=== PATIENT | female | born 2000 | race Caucasian/White ===

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

== ENCOUNTER 2018-01-21 12:10 | Inpatient (IN) ==
[2018-01-21] MEDS ORDERED: Sodium Chloride 0.9% 1,000 ML PRIMARY IV ONE (12:20)
--- NOTE | 2018-01-21 12:29 | PDOC ---
General Adult HPI - General Chief Complaint: Nausea / Vomiting / Diarrhea Stated Complaint: nausea, vomiting, hyperglycemia Date Seen by Provider: 01/21/18 Time Seen by Provider: 12:15 Source: POSITIVE: Patient Exam Limitations: POSITIVE: No limitations Nurse's Notes Reviewed & Considered: Yes - History of Present Illness Initial Comment: The patient is a 17-year-old female who presents to the emergency department with complaints of chest pain, nausea and vomiting. She had onset of nausea and vomiting yesterday and has been unable to keep very much down since then. She does have a history of type I diabetes and states that her blood sugars were running in the 80s to 90s yesterday and earlier this morning. When tested up at the clinic they were above 300. She does admit that she had drank some juice just prior to that. She initially presented to the walk-in clinic with the above complaints. Her oxygen saturations were borderline at 89% so she was placed on O2 per nasal cannula and advised to come here to the emergency department for evaluation. She states that she has been having some chest pain this morning off and on however states this has improved or resolved since being put on the oxygen. She also was given sublingual Zofran in the clinic which has improved her nausea. She denies any current abdominal pain. 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 She reports that she has a "3 chambered heart". She also does wear oxygen at night chronically. She does have an IUD in place. She denies any pain or swelling in her legs and does not have any history of blood clots. Have you received a tetanus shot in the past 10 years?: Yes - Patient Home Medications Home Medications: Home Medications Aspirin [Aspir 81] 81 mg PO DAILY tab 04/28/15 Ibuprofen 1 tab PO Q6H PRN tab 04/21/17 acetone (urine) test strips See Dose Instructions .ROUTE .MEDSUPPLY #50 ea 08/30 alcohol swabs 1 pad TOPICAL 6XD #2 ea 08/30/17 ascorbic acid (vitamin C) 500 mg tablet 1 g PO QDAY tab 08/30/17 blood sugar diagnostic strips 1 strip MISCELLANEOUS 8xday ea 08/30/17 blood-glucose meter kit 1 ea MISCELLANEOUS ONCE #1 unit 08/30/17 cholecalciferol (vitamin D3) 5,000 unit capsule 5,000 unit PO QDAY 08/30/17 glucagon (human recombinant) 1 mg injection kit 1 mg IM PRN #2 ea 08/30/17 insulin aspart U-100 100 unit/mL subcutaneous pen 60 unit SUBCUT QDAY #1500 unit 08/30/17 insulin aspart U-100 100 unit/mL subcutaneous solution 60 unit SUBCUT QAM #2 vial 08/30/17 pen needle, diabetic 32 gauge x 1/6" 1 ea SUBCUT QHS #120 unit 08/30/17 insulin syringe-needle U-100 0.3 mL 31 gauge x 01/25" See Dose Instructions .ROUTE .MEDSUPPLY #10 ea 10/14/17 - Patient Allergies Allergies/Adverse Reactions: Allergies 3 Allergy/AdvReac Type Severity Reaction Status Date / Time grapefruit Allergy Mild rash Verified 01/21/18 11:05 Past Medical History - heen HEENT History: Denies History Cardiovascular History: Other (please comment) Additional Cardiovasular History: FONTAN PROCEDURE A CHILD, 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 Respiratory History: Denies History Gastrointestinal History: Denies History Genitourinary History: Denies History Endocrine History: Type 1 Diabetes Musculoskeletal History: Denies History Neurological History: Denies History Blood Disorders: Denies History Psychiatric History: Denies History Cancer History: Denies History History of MDRO: No Alcohol Use: None In the Past 12 Months, Have Used or Abuse Any Substance: None Previous Surgical History: Yes Type / Date of Surgery: 3 CARDIAC SURGERIES BY 1 YEAR OLD, FONTAN PROCEDURE Anesthesia Reactions: No Malignant Hyperthermia: No Significant Family History: No pertinent family hx Past Medical History Reviewed: Reviewed - No Changes ROS - Limitations ROS Limitations: No Limitations Constitution: DENIES: Chills, Fever Cardiovascular: REPORTS: Chest Pain. DENIES: Heart Palpitations, Edema Respiratory: DENIES: Cough Non Productive, Cough Productive, Shortness Of Breath Neurological: DENIES: Headache, Numbness, Weakness Gastrointestinal: REPORTS: Nausea, Vomitting Musculoskeletal: REPORTS: Denies MS Symptoms Eyes: REPORTS: Denies Symptoms ENT: REPORTS: Denies Symptoms Skin: DENIES: Rash General Adult Exam - General Appearance General Appearance: POSITIVE: Alert, Cooperative, No Acute Distress - HEENT HEENT: POSITIVE: Head Inspection Nml, Eyes Inspection Nml, Ears Inspection Nml, Nose Inspection Nml, Pharynx Inspect. Nml - Neck Neck: POSITIVE: Normal Inspection. NEGATIVE: Lymphadenopathy - Respiratory Respiratory: POSITIVE: No Respiratory Distress, Breath Sounds Normal - Cardiovascular Cardiovascular: POSITIVE: Regular Rate & Rhythm, No Murmur Peripheral Pulses: Dorsalis-pedis (R): 2+, Dorsalis-pedis (L): 2+ - Abdomen Abdomen: Soft: (All Quadrants), Normal Bowel Sounds: (All Quadrants), No Guarding: (All Quadrants), No Rebound: (All Quadrants) - Skin Skin: POSITIVE: Normal Color, No Rash - Extremities Extremity: Normal ROM: (All Extremities), Normal Inspection: (All Extremities) - Neurological / Psychological Neurological: POSITIVE: Oriented X3, Motor Normal, Sensation Normal General Adult Progress - Results Reviewed by me Xrays/CTs/US Reviewed by me: Yes Discussed with Radiologist: Yes Radiology Findings: Chest x-ray shows no acute findings per radiologist. Lab Results Reviewed by Me: Yes CBC and BMP: 01/21/18 12:40 EKG Interpreted/Reviewed By Me:: Yes EKG Interpretation:: POSITIVE: Normal Sinus Rhythm, Normal Rate, Normal QRS, Other (She does have T-wave inversions in the inferior leads as well as the 3 through V6, this is unchanged from previous EKG) - Patient's Progress MDM / ED Course: Her EKG shows normal sinus rhythm with no acute changes when compared to previous EKG. Her chest x-ray is also normal. Blood sugar was elevated at 322 on arrival. Venous blood gas also reveals a pH of 7.29 and her anion gap is 32. She appears to be in mild DKA. We had a very difficult time starting an IV. Anesthesia was eventually able to start an IV and she received 1 L bolus of normal saline. She was also started on insulin with a 5 unit bolus followed by the DKA infusion protocol. The patient was borderline hypoxic with oxygen saturations of 89% at the walk-in clinic. She had been placed on O2 per nasal cannula and oxygen saturations are stable. She does wear oxygen chronically at night. Her chest x-ray is normal per radiologist. Her d-dimer was also normal. Her chest pain resolved after administration of oxygen and Zofran. I did discuss findings with the patient and her family. I also discussed patient with Dr. Muse has agreed to admit the patient for further treatment. - Consult Counseled: POSITIVE: Patient, Family, RE: Lab Results, RE: Radiology Results, RE : DX, RE: Need for F/U Patient Care Time - Estimated PCT Patient Care Time (In Minutes): 45 Vital Signs - Recent Vital Signs Vital Signs: Vital Signs (Last 8 hours) Temp Pulse Resp BP Pulse Ox 01/21/18 12:10 97.4 F 112 H 24 112/90 92 - VS Reviewed Vital Signs Reviewed: Yes Discharge Clinical Impression: DKA (diabetic ketoacidoses), Nausea and vomiting, Dehydration Discharge Disposition: Admit to Inpatient Condition: Fair Follow Up With: ZAHRA RABAGO [Primary Care Provider] - Date Decision to Admit to Inpatient: 01/21/18 Time Decision to Admit to Inpatient: 14:20
--- NOTE | 2018-01-21 12:45 | EKG ---
[address] [place] [address] Measurements Intervals [place] Rate: 99 P: -4 SD: 119 QRS: 12 QRSD: 92 T: 207 QT: 330 QTc: 386 Interpretive Statements SINUS RHYTHM WITH SHORT SD INTERVAL ST DEVIATION AND MODERATE T-WAVE ABNORMALITY, CONSIDER LATERAL ISCHEMIA ST DEVIATION AND MODERATE T-WAVE ABNORMALITY, CONSIDER INFERIOR ISCHEMIA Compared to ECG 03/22/2016 11:48:02 Short SD interval now present Sinus bradycardia no longer present T-wave abnormality still present Possible ischemia still present Electronically Signed On 01-22-18 17:49:16 MDT by Ben Reed [email or web address]
[2018-01-21 12:50] LABS: VENOUS PH 7.3 (7.32-7.42)
[2018-01-21 13:02] LABS: BLOOD UREA NITROGEN 9 mg/dL (7-22); SERUM ALBUMIN 5.8 g/dL (3.7-5.6)
--- NOTE | 2018-01-21 14:14 | DI ---
EXAM: XR Chest, 1 View CLINICAL HISTORY: ITS.REASON chest pain Physician Notes: Tech Comments: TECHNIQUE: Frontal view of the chest. COMPARISON: No relevant prior studies available. FINDINGS: Lungs: Unremarkable. No consolidation. Pleural space: Unremarkable. No pneumothorax. Heart: Unremarkable. No cardiomegaly. Mediastinum/phillip: Embolism coils to the pulmonary phillip bilaterally. Bones/joints: Unremarkable. IMPRESSION: No evidence of acute pulmonary disease.
[2018-01-21] MEDS ORDERED: INSULIN REGULAR, HUMAN 100 UNIT/1 ML - 3 ML IV ONE ×2 (14:17→21:00)
[2018-01-21] MEDS ORDERED: Glucagon Inj Vial 1 MG/ML VIAL IM PRN (14:19)
[2018-01-21] MEDS ORDERED: DEXTROSE 50%-WATER SYRINGE 50 ML SYRINGE IVP PRN (14:19)
[2018-01-21] MEDS ORDERED: DEXTROSE 31 GM GEL PO PRN (14:19)
[2018-01-21] MEDS ORDERED: Insulin Regular Inj 100 UNIT in Sodium Chloride 0.9% 99 ML IV SCH (14:30)
[2018-01-21] MEDS ORDERED: LIDOCAINE W/ SODIUM BICARB 0.5 ML SYR SUBD PRN (16:01)
--- NOTE | 2018-01-21 16:37 | PDOC ---
HPI - History of Present Illness Date of Service: 01/21/18 Time of Service: 16:00 Chief Complaint: Generalized pain, vomiting of one day duration History of Present Illness: This is a 17 years old female with medical history significant for history of diabetes type I, history of congenital heart disease with history of Fontan procedure after breath, hypoxemia with oxygen at night who presented to the hospital history of vomiting of one day duration and generalized pain. She said for her diabetes she was on insulin pump however she lost her insurance and she is now on NovoLog she would give herself 2-3 times injections a day. She checks her blood sugar maybe twice a day to 3 times a day blood sugar runs between 190-290. The last time she had A1c checked was more than a year. She did not tell her primary or her pulp machine operator that she is not on a pump anymore. He said the blood sugar was acceptable yesterday however this morning is like 300. She went to the urgent clinic if on her blood sugar was high so they sent her to the ER where was found to be in DKA . They had trouble getting an IV but once she got IV she received 1 L of fluid and 5 units of insulin and she was admitted. She feels somewhat better compared to when she came in. She said there was no shortness of breath she had generalized pain rather than specific chest pain. Past Medical History Medical History: 1. Type I diabetes for 4 years was on insulin pump until November this year as she lost her insurance and now she is only on the NovoLog 3 times a day. 2. 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 3. Hypoxemia at night. 4. History of vitamin D deficiency Surgical History: History of for Fontan procedure for congenital heart disease when she was a Pertinent Family History: Mother is diabetic Past Social History: Does not smoke, does not drink. No drugs. Works at [employer]. Tobacco Use: Never Smoker In the Past 12 Months, Have Used or Abuse Any of the Following Substance: None Alcohol Use: None Medication / Allergies Home Medications: Home Medications 3 Medication Instructions Recorded Confirmed Type Aspirin [Aspir 81] 81 mg PO DAILY tab 04/28/15 01/21/18 History Ibuprofen 1 tab PO Q6H PRN tab 04/21/17 01/21/18 History alcohol swabs 1 pad TOPICAL 6XD #2 ea 08/30/17 01/21/18 History ascorbic acid (vitamin C) 500 mg 1 g PO QDAY tab 08/30/17 01/21/18 History tablet blood sugar diagnostic strips 1 strip MISCELLANEOUS 8xday ea 08/30/17 01/21/18 History blood-glucose meter kit 1 ea MISCELLANEOUS ONCE #1 unit 08/30/17 01/21/18 History cholecalciferol (vitamin D3) 5,000 5,000 unit PO QDAY 08/30/17 01/21/18 History unit capsule glucagon (human recombinant) 1 mg 1 mg IM PRN #2 ea 08/30/17 01/21/18 History injection kit insulin aspart U-100 100 unit/mL 60 unit SUBCUT QDAY #1500 unit 08/30/17 History subcutaneous pen insulin aspart U-100 100 unit/mL 60 unit SUBCUT QAM #2 vial 08/30/17 01/21/18 Rx subcutaneous solution pen needle, diabetic 32 gauge x 1 ea SUBCUT QHS #120 unit 08/30/17 01/21/18 History 1/6" insulin syringe-needle U-100 0.3 See Dose Instructions .ROUTE 10/14/17 01/21/18 Rx mL 31 gauge x 5/16" .MEDSUPPLY #10 ea Urine Acetone Test,Strips [Ketone] 0 unit .ROUTE .MEDSUPPLY 01/21/18 01/21/18 History Allergies/Adverse Reactions: Allergies 3 Allergy/AdvReac Type Severity Reaction Status Date / Time grapefruit Allergy Mild rash Verified 01/21/18 15:31 Review of Systems - Review of Systems All Systems: Reviewed & No Additional Complaints Except as Stated Exam - Vitals Vital Signs: Vital Signs Temperature 98 F Temperature Source Oral Pulse Rate [Pulse Oximeter 101 Right] Respiratory Rate 18 Blood Pressure [Right Arm] 118/81 Pulse Ox 96 Oxygen Flow Rate 2 Oxygen Delivery Method Nasal Cannula Height 5 ft 2 in Weight 130 lb 9.6 oz - General General Appearance: No Acute Distress, Cooperative - Head Head Exam: Normal Inspection - Eye Eye Exam: POSITIVE: Normal Appearance - ENT ENT Exam: POSITIVE: Mucous Membranes Dry - Neck Neck Exam: Normal Inspection - Respiratory Respiratory Exam: POSITIVE: Clear to Auscultation - Bilaterally - Cardiovascular Cardiovascular Exam: POSITIVE: RRR - GI/Abdominal GI/Abdominal Exam: POSITIVE: Normal Bowel Sounds, Non Tender, Non Distended, Soft, No Organomegaly - Rectal Rectal Exam: POSITIVE: Deferred - External Exam: POSITIVE: Deferred - Extremities Extremities Exam: POSITIVE: Normal Inspection - Back Back Exam: POSITIVE: Normal Inspection - Neurological Neurological Exam: POSITIVE: Alert, Oriented x 3, CN II-XII Intact, Speech Intact / Clear, Moves All Extremities Equally - Psychiatric Psychiatric Exam: POSITIVE: Normal Affect Results - Labs CBC and BMP: 01/21/18 Unknown 01/21/18 16:15 Assessment and Plan - Patient Problems (1) DKA (diabetic ketoacidoses) Current Visit: Yes Status: Acute Comment: We are having trouble getting the blood sample, I managed to take a small amounts of blood for chemistry and will recheck it. May decide to change IV fluid depending on the chemistry result. But just because of the single IV access and difficulty in getting IV fluid I did speak with the radiologist Dr. Medrano and we'll try to insert a PICC line for us. Depending also on the blood sugar will decide whether we start her on IV drip insulin as her blood sugar dropped significantly with this single dose of IV insulin. Regardless once we have the better IV access will do do frequent chemistry frequent blood testing for blood sugar and electrolytes. We'll check her bedside sugar every hour. Code(s): E13.10 - Other specified diabetes mellitus with ketoacidosis without coma (2) History of cardiovascular surgery Current Visit: No Status: None Onset Date: ~2000 Comment: Continue her aspirin. May be more cautious with the amount of fluid we give her because of her history of previous heart surgery. (3) Vitamin D insufficiency Current Visit: No Status: Chronic Onset Date: 03/29/16 Comment: Continue vitamin D Code(s): E55.9 - Vitamin D deficiency, unspecified
[2018-01-21] MEDS ORDERED: Lidocaine 1% 10 MG/ML - 20 ML VIAL SUBCUT PRN (17:08)
[2018-01-21] MEDS ORDERED: LIDOCAINE 2% 20 MG/ML - 20 ML VIAL SUBCUT PRN (17:08)
[2018-01-21] MEDS ORDERED: HEPARIN 500 UNIT/5 ML SYRINGE FOR CENTRAL LINE IVP PRN (17:08)
[2018-01-21 17:12] LABS: BASOPHILS # (AUTO) 0.06 10*3/UL; BASOPHILS % (AUTO) 0.6 % (0-1); Hematocrit [HCT] 41.8 % (37.0-47.0); Hemoglobin [HGB] 15.8 g/dL (12.0-16.0); LYMPHOCYTES # (AUTO) 2.53 10*3/uL; MEAN CORPUSCULAR HEMOGLOBIN 35.6 PG (27-31); MEAN CORPUSCULAR HGB CONC 37.8 g/dL (33-37); MEAN CORPUSCULAR VOLUME 94.1 FL (81-99); MEAN PLATELET VOLUME 13.1 FL (7.4-12.2); MONOCYTES # (AUTO) 0.93 10*3/UL (0.3-0.8); MONOCYTES % (AUTO) 9.4 % (5-15); NEUTROPHILS # (AUTO) 6.09 10*3/UL; NEUTROPHILS % (AUTO) 61.8 % (50-80); RED BLOOD COUNT 4.44 10^6/uL (4.20-5.40)
[2018-01-21 17:33] LABS: BLOOD UREA NITROGEN 9 mg/dL (7-22)
[2018-01-21 17:36] LABS: PLATELET MORPHOLOGY COMMENT NORMAL MORPHOLOGY (NORM); RBC MORPHOLOGY COMMENT NORMAL MORPHOLOGY (NORM); WBC MORPHOLOGY COMMENT NORMAL MORPHOLOGY (NORM)
[2018-01-21] MEDS ORDERED: D5-1/2NS + 20mEq KCL 1,000 ML PRIMARY IV SCH (18:30)
--- NOTE | 2018-01-21 18:47 | DI ---
AP CHEST X-RAY, 01/21/2018 5:08 PM : Clinical History: Diabetic ketoacidosis. The patient has no IV access for insulin or blood draws. Nica rocio position of PICC line catheter. The patient has had prior cardiac surgery for congenital heart di sease. This information was provided to me by the attending hospitalist. Previous Exam: 01/21/2018 at 1357 hours. Multiple coils are present along the right heart border and near the medial head of the clavicle. The catheter tip is in the mid clavicular line on the left side. Heart size is normal. Lungs are clear. Mediastinal structures are normal. There are no pulmonary nodules. Reading: Normal chest x-ray. Multiple therapeutic coils are present along the right heart border in the medial head of the left clavicle. The PICC line is in the left subclavian vein at the mid axillary line.
--- NOTE | 2018-01-21 18:49 | DI ---
ULTRASOUND GUIDED VENOUS ACCESS, 01/21/2018 5:08 PM Clinical History: Diabetic ketoacidosis. The patient has no peripheral IV access site for administrat ion of insulin or joint blood. Previous Exam: None at this facility. Scans were performed over the left subclavian artery which was shown to be patent. 2D ultrasound was used to identify the left brachial vein for venous access to place a PICC line. The puncture site was prepped with ChloraPrep with Tint and draped in the usual sterile fashion. This vein was successfull y cannulated using realtime ultrasound guidance. The introducer sheath was advanced and positioned wi thout difficulty. Reading: Successful and uncomplicated cannulation of the left brachial vein.
--- NOTE | 2018-01-21 18:53 | DI ---
INSERTION OF PICC LINE, 01/21/2018 5:08 PM: Clinical History: Type I insulin-dependent diabetic patient with diabetic ketoacidosis who has no IV access for insulin or blood draws. Technique: A "time out" session was performed to verify the patient's name and date of prior to obtaining informed signed consent prior for this procedure. The left arm was prepped with ChloraPrep with Tint. Venipuncture was achieved under sterile conditions as already described in the ultrasound report. A 5 Urdu double lumen Bard Power Picc Solo PICC catheter was inserted without difficulty. The catheter was intentionally cut at 25 cm length because this patient has had prior congenital hear t disease corrective procedures. Ultrasound verified that the left subclavian vein was patent prior t o introduction of the catheter. The tip position was initially identified as being in the midportion of the left subclavian vein with an AP portable chest x-ray and then adjusted as necessary. The stand doreen dry sterile dressing kit was used to secure the catheter. The patient tolerated the procedure wel l and was discharged in stable condition. Standard orders for wound care and dressing changes were wr itten. Hourly Shift Manager: Joshua Medrano MD Roll Forming Supervisor: None. Complications/Medications: None. Reading: PICC line placement as above. The catheter length was intentionally cut short (25 cm) to be certain t hat it was not in proximity to the heart.
[2018-01-21] MEDS ORDERED: D5-NS + 20mEq KCL 1,000 ML PRIMARY IV SCH (19:45)
[2018-01-21 20:36] LABS: BLOOD UREA NITROGEN 7 mg/dL (7-22); BUN/CREATININE RATIO 11.66 (6-20)
[2018-01-21] MEDS ORDERED: Sodium Chloride 0.9% 500 ML PRIMARY IV ONE (20:43)
[2018-01-21] MEDS ORDERED: INSULIN REGULAR, HUMAN 100 UNIT/1 ML - 3 ML SUBCUT ONE (20:45)
[2018-01-21] MEDS ORDERED: Magnesium Sulfate 2gm (Premix) 2 GM/50 ML BAG IV ONE (21:43)
[2018-01-21 23:27] LABS: BILIRUBIN,URINE NEGATIVE (NEG); CLARITY,URINE CLEAR (CLEAR); COLOR,URINE YELLOW; GLUCOSE, URINE (UA) 500 mg/dL (NEG); OCCULT BLOOD,URINE NEGATIVE (NEG); PH,URINE 5.5 (5.0-8.5); PROTEIN,URINE NEGATIVE (NEG); UROBILINOGEN,URINE 0.2 mg/dL (0.2)
[2018-01-21 23:32] LABS: RBC,URINE 0 /hpf; SQUAMOUS EPITHELIAL CELL,UR MODERATE; URINE SAMPLE TYPE CLEAN CATCH URINE; WBC,URINE 0-1
[2018-01-21 23:33] LABS: BACTERIA,URINE FEW
[2018-01-22] MEDS ORDERED: D5-NS + 20mEq KCL 1,000 ML PRIMARY IV SCH (00:30)
[2018-01-22 00:38] LABS: BLOOD UREA NITROGEN 5 mg/dL (7-22)
[2018-01-22] MEDS ORDERED: Potassium Phoshate Inj 40 MMOL in D5W 250 ML IV ONE (01:30)
[2018-01-22 05:11] LABS: BLOOD UREA NITROGEN 4 mg/dL (7-22)
[2018-01-22] MEDS: D5-NS + 20mEq KCL 1,000 ML PRIMARY IV SCH ×4 (06:38→13:21)
--- NOTE | 2018-01-22 07:20 | PDOC(PROG) ---
Date and Time of Service: 01/22/2018 7:15 AM Interval History: Subjective Patient feels a lot better she said compared to when she came in. No more body aches. No nausea no vomiting. Denying all symptoms. Objective : Data - Labs CBC and BMP: 01/21/18 Unknown 01/22/18 08:30 Objective : Exam - General General Appearance: No Acute Distress, Cooperative - Head Head Exam: Normal Inspection - Eye Eye Exam: Normal Appearance - ENT ENT Exam: Normal Exam - Neck Neck Exam: Normal Inspection - Respiratory Respiratory Exam: Clear to Auscultation - Bilaterally - Cardiovascular Cardiovascular Exam: RRR - GI/Abdominal GI/Abdominal Exam: Normal Bowel Sounds, Non Tender, Non Distended, Soft, No Organomegaly - Rectal Rectal Exam: Deferred - External Exam: Deferred - Extremities Extremities Exam: Normal Inspection Additional Extremities Exam Details: PICC line and left the arm - Back Back Exam: Normal Inspection - Neurological Neurological Exam: Alert, Oriented x 3, CN II-XII Intact, No Facial Droop, Speech Intact / Clear, Moves All Extremities Equally - Psychiatric Psychiatric Exam: Normal Affect Assessment and Plan - Patient Problems (1) DKA (diabetic ketoacidoses) Current Visit: Yes Status: Acute Comment: Seems to be improving, her anion gap improved, bicarbonate improved will see what's her next chemistry if continued to improve we may consider switching her to subcutaneous insulin instead of the IV drip. For now will continue the drip and IV fluid. Will advance her diet to consistent carbohydrate diet. Code(s): E13.10 - Other specified diabetes mellitus with ketoacidosis without coma (2) History of cardiovascular surgery Current Visit: No Status: None Onset Date: ~2000 Comment: Continue aspirin (3) Vitamin D insufficiency Current Visit: No Status: Chronic Onset Date: 03/29/16 Comment: Continue vitamin D. Code(s): E55.9 - Vitamin D deficiency, unspecified
[2018-01-22 08:48] LABS: BLOOD UREA NITROGEN 4 mg/dL (7-22)
[2018-01-22] MEDS ORDERED: Insulin Glargine SoloStar Inj 100 UNIT/ML INSULN.PEN SUBCUT ONE ×2 (08:52→20:53)
[2018-01-22] MEDS ORDERED: ASCORBIC ACID Chewable 500 MG TABLET PO SCH (09:00)
[2018-01-22] MEDS ORDERED: ASPIRIN EC 81 MG TABLET PO SCH (09:00)
[2018-01-22] MEDS ORDERED: CHOLECALCIFEROL 1000 IU TABLET PO SCH (09:00)
[2018-01-22] MEDS: Insulin Lispro Flexpen 300 UNIT/3 ML INSULN.PEN SUBCUT SCH ×4 (11:12→21:04)
[2018-01-23 04:58] VITALS: O2SAT 99
[2018-01-23 05:26] LABS: BLOOD UREA NITROGEN 9 mg/dL (7-22)
[2018-01-23 05:28] LABS: HEMOGLOBIN A1C > 14.00 % (4.2-6.0)
[2018-01-23] MEDS: Insulin Lispro Flexpen 300 UNIT/3 ML INSULN.PEN SUBCUT SCH (06:50)
[2018-01-23] MEDS ORDERED: Insulin Glargine SoloStar Inj 100 UNIT/ML INSULN.PEN SUBCUT SCH ×3 (07:00)
[2018-01-23 07:10] VITALS: BP 113/75; RESP 21; TEMP 97.8
--- NOTE | 2018-01-23 07:18 | PDOC(PROG) ---
Date and Time of Service: 01/23/2018 7:16 AM Interval History: Subjective Patient feels better than yesterday. Looks better. Denying symptoms. Objective : Data - Labs CBC and BMP: 01/21/18 Unknown 01/23/18 04:30 Objective : Exam - General General Appearance: No Acute Distress, Cooperative - Head Head Exam: Normal Inspection - Eye Eye Exam: Normal Appearance - ENT ENT Exam: Normal Exam - Neck Neck Exam: Normal Inspection - Respiratory Respiratory Exam: Clear to Auscultation - Bilaterally - Cardiovascular Cardiovascular Exam: RRR - GI/Abdominal GI/Abdominal Exam: Normal Bowel Sounds, Non Tender, Non Distended, Soft, No Organomegaly - Rectal Rectal Exam: Deferred - External Exam: Deferred Exam: Deferred - Extremities Extremities Exam: Normal Inspection - Back Back Exam: Normal Inspection - Neurological Neurological Exam: Alert, Oriented x 3, Normal Gait, CN II-XII Intact, No Facial Droop, Speech Intact / Clear, Moves All Extremities Equally - Psychiatric Psychiatric Exam: Normal Affect - Integumentary Integumentary Exam: Normal Color Assessment and Plan - Patient Problems (1) DKA (diabetic ketoacidoses) Current Visit: Yes Status: Acute Comment: This is resolved. She is now on Lantus and sliding scale insulin. I did tell her that I'll speak with the pharmacist and see if he can get her samples of the Lantus. I will speak with Dr. Matthews and let her know by the patient admission. Will speak also to planner chief. Possible discharge today. Code(s): E13.10 - Other specified diabetes mellitus with ketoacidosis without coma (2) History of cardiovascular surgery Current Visit: No Status: None Onset Date: ~2000 Comment: Continue aspirin (3) Vitamin D insufficiency Current Visit: No Status: Chronic Onset Date: 03/29/16 Comment: Continue vitamin D Code(s): E55.9 - Vitamin D deficiency, unspecified
[2018-01-23] MEDS ORDERED: HEPARIN 500 UNIT/5 ML SYRINGE FOR CENTRAL LINE IVP PRN (07:51)
[2018-01-23] MEDS ORDERED: LIDOCAINE W/ SODIUM BICARB 0.5 ML SYR SUBD PRN (07:51)
[2018-01-23] MEDS ORDERED: DEXTROSE 50%-WATER SYRINGE 50 ML SYRINGE IVP PRN (07:51)
[2018-01-23] MEDS ORDERED: Glucagon Inj Vial 1 MG/ML VIAL IM PRN (07:51)
[2018-01-23] MEDS ORDERED: DEXTROSE 31 GM GEL PO PRN (07:51)
[2018-01-23] MEDS ORDERED: ASPIRIN EC 81 MG TABLET PO SCH (09:00)
[2018-01-23] MEDS ORDERED: ASCORBIC ACID Chewable 500 MG TABLET PO SCH (09:00)
[2018-01-23] MEDS ORDERED: Potassium Chloride Tab 10 MEQ TAB PO SCH ×2 (09:00)
[2018-01-23] MEDS ORDERED: CHOLECALCIFEROL 1000 IU TABLET PO SCH (09:00)
[2018-01-23] MEDS ORDERED: Insulin Lispro Flexpen 300 UNIT/3 ML INSULN.PEN SUBCUT SCH (11:00)
--- NOTE | 2018-01-23 12:44 | DCSUMMARY ---
Hospitalization Summary Admit Date: 01/21/2018 Discharge Date: 01/23/18 Hospital Course: Discharge instruction 1. DKA resolved 2. Diabetes uncontrolled 3. 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 Hypoxemia at night Hospital course This is a 17 years old female with medical history significant for history of diabetes type I on insulin, history of congenital heart disease with history of fontan procedure after , hypoxemia with oxygen at night who presented to the hospital with history of vomiting of one day duration in addition to generalized pain. She said for diabetes she was on insulin pump however she lost her insurance and she was only taking NovoLog she would give herself 2-3 times injections a day. She checks her blood sugar maybe 2-3 times a day and a blood sugar she says runs between 192-290. Because she was not feeling well she went to the urgent clinic and blood glusoce in the 300s from there they sent her to the ER she was found to be in DKA was given fluid and was given insulin and she was admitted. Patient was a difficult IV stick so there was a delay in rechecking her chemistry after admission she had to have a PICC line inserted. The blood sugar although initially came down when she came into the floor but went up again because of difficulty in getting an IV access. After PICC line insertion we monitored her blood sugar her electrolytes put her on insulin drip. The next day her labs improved she closed her anion gap so we switch her to subcutaneous insulin. On the day of discharge she was feeling much better she was not in DKA anymore. We put her on Lantus and sliding scale. I did speak to the pharmacy so they arranged for her to get samples of the Lantus. I did speak with Dr. Matthews her operational risk analyst and she found that the patient was on Lantus 25 units at night before she was on the pump so we discharge her on that. Patient said that she been on carbohydrate ratio of 1-12 and correction factor starting at 180 of 1- 50 I told her to continue with that. She'll check her blood sugar and she'll follow-up with Dr. Matthews coming Tuesday. Laboratory Results 01/23/18 01/23/18 Range/Units 04:30 04:30 Sodium 140 (135-145) meq/L Potassium 3.6 L (3.8-5.2) meq/L Chloride 106 (98-112) meq/L Carbon Dioxide 23 (23-33) meq/L Anion Gap 11 (5-20) BUN 9 (7-22) mg/dL Creatinine 0.4 L (0.50-1.20) mg/dL Estimated GFR > 60 (>60 ml/min/1.73m(2)) BUN/Creatinine Ratio 22.50 H (6-20) Glucose 215 H (78-110) mg/dL Mean Blood Glucose 380.552326 mg/dL Hemoglobin A1c > 14.00 H (4.2-6.0) % Calculated Osmolality 294.0 H (267-292) mOsm/kg Calcium 8.1 L (8.7-10.7) mg/dL Magnesium 1.8 (1.6-2.4) mg/dL Discharge instruction Diet diabetic Activity as started Medications Current Medication(s) 3 Medication Instructions Recorded Confirmed Type Aspirin [Aspir 81] 81 mg PO DAILY tab 04/28/15 01/21/18 History Ibuprofen 1 tab PO Q6H PRN tab 04/21/17 01/21/18 History alcohol swabs 1 pad TOPICAL 6XD #2 ea 08/30/17 01/21/18 History ascorbic acid (vitamin C) 500 mg 1 g PO QDAY tab 08/30/17 01/21/18 History tablet blood sugar diagnostic strips 1 strip MISCELLANEOUS 8xday ea 08/30/17 01/21/18 History blood-glucose meter kit 1 ea MISCELLANEOUS ONCE #1 unit 08/30/17 01/21/18 History cholecalciferol (vitamin D3) 5,000 5,000 unit PO QDAY 08/30/17 01/21/18 History unit capsule glucagon (human recombinant) 1 mg 1 mg IM PRN #2 ea 08/30/17 01/21/18 History injection kit insulin aspart U-100 100 unit/mL 60 unit SUBCUT QDAY #1500 unit 08/30/17 History subcutaneous pen insulin aspart U-100 100 unit/mL 60 unit SUBCUT QAM #2 vial 08/30/17 01/21/18 Rx subcutaneous solution pen needle, diabetic 32 gauge x 1 ea SUBCUT QHS #120 unit 08/30/17 01/21/18 History 1/" insulin syringe-needle U-100 0.3 See Dose Instructions .ROUTE 10/14/17 01/21/18 Rx mL 31 gauge x 01/25" .MEDSUPPLY #10 ea Urine Acetone Test,Strips [Ketone] 0 unit .ROUTE .MEDSUPPLY 01/21/18 01/21/18 History Insulin Glargine SoloStar Inj 25 unit SUBCUT BEDTIME #1 01/23/18 Rx [Lantus SoloStar Inj] [email or web address] Insulin Lispro Flexpen Inj 0 - 14 unit SUBCUT AC HS 01/23/18 Rx [HumaLOG Flexpen Inj] insuln.pen Follow-up with PCP 1-2 weeks, follow-up with Dr. Matthews as scheduled on Tuesday Condition at discharge was stable for discharge Exam - Vitals Vital Signs: Vital Signs Temperature 97.8 F Temperature Source Temporal Artery Scan Pulse Rate [Pulse Oximeter 85 Right] Pulse Rate 74 Respiratory Rate 21 Blood Pressure [Right Arm] 113/75 Pulse Ox 99 Oxygen Flow Rate 2 Oxygen Delivery Method Nasal Cannula Height 5 ft 2 in Weight 143 lb 2 oz Patient Problems - Patient Problem List (1) DKA (diabetic ketoacidoses) Status: Acute Code(s): E13.10 - Other specified diabetes mellitus with ketoacidosis without coma Category: Medical (2) History of cardiovascular surgery Status: None Onset Date: ~2000 Comment: Born with 3 chamber heart, multiple repairs Category: Surgical (3) Vitamin D insufficiency Status: Chronic Onset Date: 03/29/16 Code(s): E55.9 - Vitamin D deficiency, unspecified Category: Medical
[2018-01-24] MEDS ORDERED: Insulin Glargine SoloStar Inj 100 UNIT/ML INSULN.PEN SUBCUT SCH (07:00)
== END 2018-01-23 12:51 | disposition home or self-care (01) | DRG 639 ==
LOC: ER 12:10 → ICU 15:29 → MED/SURG 01-23 07:18
PROVIDERS: ADMIT Internal Medicine; ATTEND Internal Medicine